=== PATIENT | female | born 1995 | race Caucasian/White ===

== ENCOUNTER 2016-07-01 02:57 | Emergency (ER) | payer OTHER ==
[~2016-07-01] VITALS: Ht 149.9 cm; Wt 63.5 kg
[2016-07-01 03:10] VITALS: BP 126/86
[2016-07-01 03:50] LABS: BILIRUBIN,URINE NEGATIVE (NEG); GLUCOSE,URINE NEGATIVE (NEG); NITRITE,URINE NEGATIVE (NEG); PH,URINE 5.5; PROTEIN,URINE 30 mg/dL (NEG-TRACE); UROBILINOGEN,URINE 0.2 mg/dL (0.2 mg/dL)
--- NOTE | 2016-07-01 03:51 | ED.ADGEN ---
Adult General Chief Complaint Chief Complaint: VAGINAL BLEEDING HPI HPI Patient is a 20 year old woman, , with a 5-month-old , who had a Mirena placed 3 months ago, who presents to the emergency department with complaint of vaginal bleeding. Patient states that she's experienced intermittent vaginal spotting since placement of her Mirena. She states that yesterday she began experiencing abdominal cramping and heavier vaginal bleeding. She states that she used 5 pantiliners since that time, has not used any tampons or pads. She denies any abdominal cramping at this time. Denies any bright red blood, states that she's been experiencing some itching in her vaginal region for the past several days as well. No discharge or drainage, no concerns for STI exposures. No back pain or flank pain, no urinary complaints, no chest pain or shortness breath, no fevers or chills, no nausea or vomiting. Has not taken any medication or to coming to the ED. No lightheadedness or vertiginous type symptoms. Denies any injuries or insertions of the vagina. Review of Systems Review of Systems Constitutional: Denies fever or chills. [] Eyes: Denies change in visual acuity. [] HENT: Denies nasal congestion or sore throat. [] Respiratory: Denies cough or shortness of breath. [] Cardiovascular: Denies chest pain or edema. [] GI: Denies nausea, vomiting, bloody stools or diarrhea. Pelvic cramping associated with passage of blood and clots. : Denies dysuria. [] Musculoskeletal: Denies back pain or joint pain. [] Integument: Denies rash. [] Neurologic: Denies headache, focal weakness or sensory changes. [] Endocrine: Denies polyuria or polydipsia. [] Lymphatic: Denies swollen glands. [] Psychiatric: Denies depression or anxiety. [] Current Medications Current Medications Current Medications Medications (Trade) Dose Ordered Sig/Yunier Start Time Stop Time Status Last Admin Dose Admin Metronidazole (Flagyl) 500 mg 1X ONCE 07/01/16 04:15 07/01/16 04:16 UNV Allergies Allergies Allergies Coded Allergies Type Severity Reaction Last Updated Verified No Known Drug Allergies 07/01/16 No Physical Exam Physical Exam Constitutional: Well developed, well nourished, no acute distress, non-toxic appearance. [] HENT: Normocephalic, atraumatic, bilateral external ears normal, oropharynx moist, no oral exudates, nose normal. [] Eyes: PERRLA, EOMI, conjunctiva normal, no discharge. [] Neck: Normal range of motion, no tenderness, supple, no stridor. [] Cardiovascular:Heart rate regular rhythm, no murmur, S1, S2, rubs or gallops. [] Lungs & Thorax: Bilateral breath sounds clear to auscultation, no wheezing, rhonchi, rales. No chest wall tenderness or crepitus. [] Abdomen: Bowel sounds normal, soft, no tenderness, no rebound, rigidity, no guarding, no masses, no pulsatile masses. [] Skin: Warm, dry, no erythema, no rash. [] Back: No tenderness, no CVA tenderness. [] Extremities: No tenderness, no cyanosis, no clubbing, ROM intact, no edema. [] Neurologic: Alert and oriented X 3, normal motor function, normal sensory function, no focal deficits noted. [] Psychologic: Affect normal, judgement normal, mood normal. [] Pelvic examination: External examination is normal, no lesions or injuries identified, no active bleeding at this time. Bimanual examination reveals IUD in place with strings palpated, nontender cervix, no adnexal masses or tenderness identified, on speculum examination, strings are visualized, normal- appearing cervix with dark blood and small amount of clots in the vaginal vault , no active bleeding. Specimens taken without issue. Current Patient Data Vital Signs Vital Signs Date Time Temp Pulse Resp B/P Pulse Ox O2 Delivery O2 Flow Rate FiO2 07/01/16 03:10 98.3 77 16 126/86 97 Room Air 98.3 Lab Values Laboratory Tests Test 07/01/16 03:00 Urine Collection Type Unknown Urine Color Barbi Urine Clarity Cloudy Urine pH 5.5 Urine Specific [place] 1.025 Urine Protein 30mg/dL (NEG-TRACE) Urine Glucose (UA) Negativemg/dL (NEG) Urine Ketones (Stick) Negativemg/dL (NEG) Urine Blood Large (NEG) Urine Nitrite Negative (NEG) Urine Bilirubin Negative (NEG) Urine Urobilinogen Dipstick 0.2mg/dL (0.2 mg/dL) Urine Leukocyte Esterase Small (NEG) Urine RBC Occ/HPF (0-2) Urine WBC 5-10/HPF (0-4) Urine Squamous Epithelial Cells Many/LPF Urine Bacteria Mod/HPF (0-FEW) Urine Mucus Mod/LPF Microbiology 07/01/16 Wet Prep - Final, Complete EKG EKG Not indicated. [] Radiology/Procedures Radiology/Procedures Not indicated. [] Course & Med Decision Making Course & Med Decision Making Pertinent Labs and Imaging studies reviewed. (See chart for details) Patient no active bleeding at this time, IUD is in place as stated. Wet prep obtained reveals bacterial vaginosis. Patient given first dose of metronidazole in the emergency department without issue. Instructed to follow-up with her OB with [facility] in 7 days for test of cure, and for additional evaluation. Given clear and detailed return instructions with which she voiced understanding and agreement. No active bleeding at this time. Patient discharged home in stable condition with plan as above. Dragon Disclaimer Dragon Disclaimer This electronic medical record was generated, in whole or in part, using a voice recognition dictation system. Departure Impression: Primary Impression: Bacterial vaginosis Additional Impression: IUD (intrauterine device) in place Disposition: 01 HOME, SELF-CARE Condition: IMPROVED Scripts Metronidazole 500 Mg Tablet1 Tab PO BID #[id number] TAB Prov:ALEJANDRO WING DO 07/01/16 Problem Qualifiers ALEJANDRO WING DO Jul 01, 2016 03:51
[2016-07-01 04:11] LABS: BACTERIA,URINE MOD /HPF (0-FEW); RBC,URINE OCC /HPF (0-2); SQUAMOUS EPITHELIAL CELL,UR MANY /LPF
[2016-07-01] MEDS ORDERED: METR500T4 PO (04:13)
[2016-07-01] MEDS ORDERED: METRONIDAZOLE 500 MG TABLET. PO ONE (04:30)
== END 2016-07-01 04:25 | disposition home or self-care (01) ==
LOC: ER 02:57
DX: N76.0 Acute vaginitis (principal); Z97.5 Presence of (intrauterine) contraceptive device
CPT/HCPCS: 81001; 99284; Q0111; 81025; 87491; 87591